=== PATIENT | male | born 1985 | race Caucasian/White ===

== ENCOUNTER 2021-07-17 18:39 | Inpatient (IN) | payer OTHER ==
[~2021-07-17] VITALS: Ht 172.7 cm; Wt 131.0 kg
[~2021-07-17 18:39] MED LIST: CYCLOBENZAPRINE10 MG PO; NORCO 5-325 TA1 EACH PO
[2021-07-17] MEDS ORDERED: ALEVE220 MG PO (19:18)
--- NOTE | 2021-07-17 23:29 | NUR ---
REPORT RECEIVED FROM SENIOR TECHNOLOGISTPENNY ROCHA.
--- NOTE | 2021-07-18 02:03 | NUR ---
pt ARRIVES FROM ER VIA STRETCHER, ABLE TO TRANSFER SELF TO HOSPITAL BED. SPO2 WNL ON 2L OXYGEN BY NC. TELE PLACED ON pt WITH CPOX. LUNG SOUNDS COARSE BILATERALLY IN BASES, DIMINISHED. pt COMPLAINS OF SOME SHORTNESS OF BREATH, PAIN IN STERNUM AFTER COUGHING. PRN SLEEP AND COUGH MEDICATION ADMINISTERED. pt DENIES NEED FOR PRN PAIN MEDICATION. IV REMDESIVIR INFUSING WNL, IV SITE WITH GOOD BLOOD RETURN. ORIENTATION TO ROOM PROVIDED. pt STATES HE IS ANXIOUS REGARDING COVID DIAGNOSIS. THERAPEUTIC COMMUNICATION PROVIDED. CALL LIGHT IN REACH.
--- NOTE | 2021-07-18 02:06 | NUR ---
IV PUMP ALARMING. IV REMDESIVIR COMPLETE. pt SNORING, SLEEPING. BREATHING UNLABORED. 2L OXYGEN BY NC IN PLACE.
--- NOTE | 2021-07-18 02:32 | NUR ---
SPO2 DROPS TO 80% WITH 2L OXYGEN BY NC IN PLACE. pt REPOSITIONED SELF FROM RIGHT SIDE TO LYING ON BACK. pt SLEEPING, EYES CLOSED, BREATHING UNLABORED. TITRATED TO 5L OXYGEN. RT HARDIK ALSO IN ROOM. LIGHTS OFF IN ROOM.
--- NOTE | 2021-07-18 04:58 | NUR ---
pt'S SPO2 74-75% ON TELE 6 CPOX. CALL LIGHT ANSWERED, pt C/O SOB WITH 5L OXYGEN BY NC IN PLACE. pt LYING ON BACK WITH HOB ELEVATED. pt INSTRUCTED TO LIE ON SIDE. SPO2 INCREASES TO 92% WITH SIDE LYING. RN ENTERS ROOM AFTER A FEW MINUTES. pt APPEARS TO BE SLEEPING, SNORING. EYES CLOSED, BREATHING UNLABORED. URINAL EMPTIED, CONCENTRATED, TEA COLOR.
--- NOTE | 2021-07-18 06:42 | NUR ---
pt DESAT TO MID 50'S, THIS RN TO ROOM. pt HAD NASAL CANNULA PLACED, 5L O2. TITRATED TO 15L, WITH 15L OXY MASK, MONITORED SATS, RECOVERED WITHIN MINUTES. TITRATED TO 5L O2 VIA NC. MONITORED, pt ABLE TO MAINTAIN SATS OF 90% ON THE 5L. INGRID RN AT DOOR.
--- NOTE | 2021-07-18 06:43 | NUR ---
PT BACK TO BED, O2 @ 5L NC. PRIOR TO THIS @ 0635 TEL CPOX WAS READING 61, BY TIME RN TO ROOM, IT HAD DROPPED INTO THE 50'S. PT LAYING SPRAWLED ON HIS BACK, INSTRUCTED PT TO TURN TO HIS SIDE, HE STATED HE HAD BEEN UP TO THE BATHROOM, TOOK O2 OFF CAUSE "IT DIDN'T REACH", GOT DISORIENTATED IN THE "CORDS" DIDN'T WANT TO PEE ON THEM, AND HIMSELF. HIS OXYGEN WAS LAYING ON HIS BED. TATO, RN INTO ROOM, TURNED O2 UP WITH OXY MASK, RECOVERY WAS SLOW. PT INSTRUCTED TO STAND AT BEDSIDE TO USE THE URINAL, CALL TO USE BSC, OR HAVE STAFF ASSISTED INTO THE BATHROOM. PT AWARE TO LAY ON HIS SIDE, AND UNDERSTANDS THE REASONING. UPON ADMISSION TO THE FLOOR HE HAD STATED TO THIS RN, "DON'T LET ME ", HE WAS JOKING, BUT IS ALSO FEARFUL. PLANS TO BECOME VACCINATED, IS AWARE THAT HE WILL HAVE TO WAIT FOR 90 DAYS. HIS IS POSITIVE WELL, HOWEVER, HIS CHILDREN ARE NOT SICK AT THIS TIME.
--- NOTE | 2021-07-18 07:06 | NUR ---
pt AWAKE RESTING ON LEFT SIDE, SPO2 92% WITH 5L OXYGEN BY NC IN PLACE. VSS. pt WITH OCCASIONAL COUGH, PRN MEDICATION ADMINISTERED. DISCUSSED PRONING IMPORTANCE WITH PATIENT, VERBALIZES UNDERSTANDING. CALL LIGHT IN REACH. ICE WATER PROVIDED.
--- NOTE | 2021-07-18 07:43 | NUR ---
PT IN BED PRONING. 5L NC IN PLACE. SPO2 93%. HR 87. VISULIZED THROUGH DOOR. CALL LIGHT IN REACH.
--- NOTE | 2021-07-18 09:00 | NUR ---
ASSESSMENT COMPLETED. ON 5L NC. SATURATIOSN 91%. ASSISTED PT TO PRONING POSITION WITH PILLOWS UDER HIP/CHEST AND SHINS. TOLERATING WELL. SPO2 AT 92%LUNGS COARSE IN BASES AND DIM. NO EDEMA. RR IS 20. DENIES SOB. PULSES WNL.HEART SOUNDS REGULAR. PT IS TACHY. COUGH MEDICATION ADMISNTERED AND TYLENOL FOR BODY ACHES. ELEATED TEMP NOTED WLL. REFUSING BREAKFAST. ENCOURAGED FLUID INTTAKE.
--- NOTE | 2021-07-18 10:31 | NUR ---
MED REC COMPLETE
--- NOTE | 2021-07-18 10:36 | NUR ---
PTS SATURATIONS AT 86%. THIS NURSE TO BEDSIDE. PT LYING ON SIDE. PT HAS 5L NC IN PLACE. CHAGED TO OXYMASK 10L. SATURAIOTNS INCREASED TO 94% WILL CONT TO MONITOR.
--- NOTE | 2021-07-18 11:43 | NUR ---
PT CALLS REPORTING OXYGEN WAS PULLED OUT OF THE WALL. PT IS WITH SATURATIONS OF 96% AND DECREASING. THIS NURSE TO BEDSIDE. SATURATIONS AT 90% BY THIS TIME. PT REPORTS HE IS BREATHING BETTER WITH BOTH NC AND OXYMASK IN PLACE. OXYMASK IS AT 10L AND NC IS AT 6L. THIS IS WHY SATURATIOSN WERE SO HIGH. RESPITORY THERAPY TO BESIDE WELL. RT WILL BRING HIGH FLOW CANNULA FOR PT.
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
--- NOTE | 2021-07-18 14:19 | NUR ---
PT DESATTED WHILE UP TO USE THE URINAL. HAD TO TURN UP THE O2 TO 7LNC. TOLERATED WELL AND DOES NOT FEEL SOB.
--- NOTE | 2021-07-18 14:30 | NUR ---
ROUNDED ON PT FOR SATURATIONS DECREASING. TITRATED TO 7L NC. SPO2 AT 91% NOW. PT PRONING. CALL LIGHT IN REACH. ATE 75% OF LUNCH.
--- NOTE | 2021-07-18 14:35 | NUR ---
PT WAS IN BED. THIS COLOR MIXER CAME IN TO TAKE PT'S VITALS AND I&OS. NO OTHER NEEDS AT THIS TIME. CALL LIGHT IS WITHIN REACH.
--- NOTE | 2021-07-18 15:41 | NUR ---
Chart faxed to Marcella at [facility] to obtain pcp to establish care.
--- NOTE | 2021-07-18 17:27 | NUR ---
ROUNDED ON PT. PT LYING ON LEFT SIDE. TITATED O2 BACK TO 6L NC. SATURATIONS 90%. PT NOT HUNGERY BUT AGREES TO EAT CHICKEN NOODLE SOUP. VITALS TAKEN AND STABLE. PT VOIDED 300ML. COUGH MEDICATION AND TYLENOL ADMISNTERED FOR COUGH AND ACHES. DENIES FURTHER NEEDS. ENCOURAGED FLUID INTAKE.
--- NOTE | 2021-07-18 18:20 | NUR ---
THIS [employer] FISHING VESSEL CHECKED ON PT AND MARKED OFF I&OS. PT HAD NO OTHER NEEDS AT THIS TIME. CALL LIGHT IS WITHIN REACH.
--- NOTE | 2021-07-18 19:36 | NUR ---
PT RESTING IN BED. NC @ 6L, CPOX 89%. CALL LIGHT IN REACH.
--- NOTE | 2021-07-18 20:30 | NUR ---
ASSESSMENT, VS AND I&O COMPLETED. GCS 15, A&O X4. LUNGS HAVE CRACKLES IN ALL L0BES. NC @ 6L, CPOX 89% SCHEDULED MEDS PROVIDED. HEART TONES REGULAR. ABD SOFT, OBESE, BOWEL TONES ACTIVE. CMS INTACT. IV WNL, CDI, FLUSHED WELL. ICE WATER, ICE CHIPS, BLANKETS AND SNACK PROVIDED. NO OTHER NEEDS. CALL LIGHT IN REACH.
--- NOTE | 2021-07-18 22:02 | NUR ---
PATIENT NEEDED URINAL DUMPED, FRESH ICE WATER PROVIDED, AND IS AND OS CHARTED.
--- NOTE | 2021-07-18 23:24 | NUR ---
PT RESITNG IN BED. SPO2 89% ON 6L NC. CALL LIGHT IN REACH.
--- NOTE | 2021-07-19 01:26 | NUR ---
spo2 80%. pt placed on 8l oxymask, no change. pt placed in the upright position, no change. i.s. used, pt coughed vigoriously. spo2 up to 90% but goes back to 84%. oxymask up to 12L, spo2 92%. o2 titrated to 10L oxymask, spo2 89%. pt denies sob the entire time. cough is unproductive. Will continue to monitor.
--- NOTE | 2021-07-19 02:05 | NUR ---
ASSESSMENT COMPLETD. SPO2 90% ON 10L OXYMASK. NASAL SPRAY PROVIDED. LUNGS HAVE CRACKLES IN THE UPPER LOBES AND COURSE AND DIMINISHED IN LOWER LOBES. PT DENIES SOB. RR 20 AND SHALLOW. EDUCATION PROVIDED ABOUT DEEP BREATHING, I.S. AND PRONE/SIDE POSITIONING. PT MOVES TO LEFT SIDE. NO OTHER NEEDS AT THIS TIME. CALL LIGHT IN REACH.
--- NOTE | 2021-07-19 03:25 | NUR ---
PT CALLS TO REPORT HE HAS REMOVED THE O2 FROM THE WALL, SPO2 DROPS TO 64% QUICKLY. O2 PLUGGED BACK IN, SPO2 RETURNS TO 89% WITHIN A COUPLE OF MINUTES. SUBSTANCE ABUSE COUNSELOR IN ROOM TO ASSIST PT WITH PERSONAL CARES.
--- NOTE | 2021-07-19 03:31 | NUR ---
PT CALLED NURSES STATION NEEDING ASSISTANCE WITH O2. THIS STAFF THERAPIST ASSISTED PT WITH O2, EMPTIED URINAL, CHARTED IS AND OS, AND PROVIDED FRESH ICE WATER. CALL LIGHT LEFT WITHIN REACH, NO OTHER IMMEDIATE NEEDS AT THIS TIME.
--- NOTE | 2021-07-19 06:20 | NUR ---
PATIENT VITALS, IS AND OS CHARTED. PATIENT ROOM TIDIED, TRASH CANS EMPTIED, FRESH ICE WATER PROVIDED. BREAKFAST ORDER TAKEN. CALL LIGHT LEFT WITHIN REACH. NO OTHER NEEDS AT THIS TIME.
--- NOTE | 2021-07-19 07:11 | NUR ---
REPORT RECEIVED FROM PENNY MENDEZ. PT SITTING UP IN BED WITH HEAD OF BED ELEVATED TO 45 DEGREES. OXGYEN SATURATIONS 80-85% ON 10L O2 BY OXY MASK. PT REPORTS INCREASED COUGH. DR. PEDERSON CALLED AND UPDATED ON PT CONDITION. ORDERS GIVEN FOR VAPOTHER AND CPAP TO MAINTAIN OXYGEN SATURATIONS ABOVE 88%. RT CALLED AND UPDATED, EN ROUTE WITH NEW EQUIPMENT.
--- NOTE | 2021-07-19 07:26 | NUR ---
THIS RN TO ROOM. PT PLACED ON NON REBREATHER AT 16L, OXYGEN SATURATIONS CLIMB TO 95%. EDUCATION DONE WITH PT REGARDING VAPOTHERM AND CPAP USE. RT ASIF TO BEDSIDE. PT TRIED ON HIGH FLOW NASAL CANULA AT 16L AND DROPS TO 86-88%. PT PLACED BACK ON NON REBREATHER AT 14L O2 WITH OXGYEN SATURATIONS MAINTAINING ABOVE 90%. CPAP FITTED TO PT BY RT JEANIE. PT PLACED ON 15 CPAP SETTINGS WITH 50% FIO2, OXYGEN STATURATIONS 90-95%. FULL ASSESSMENT DONE: PT DENIES PAIN AND NAUSEA. LUNG SOUNDS CLEAR THROUGHOUT BUT VERY DEMINISHED IN BASES. BREATHING SHALLOW, PT REPORTS HE IS UNABLE TO TAKE DEEP BREATHS BECAUSE IT "STARTS A COUGHING FIT AND THEN I CAN'T BREATH." DRY COUGH NOTED. PRN COUGH MEDICATION GIVEN (SEE MAR). PT DENIES DIARRHEA, NAUSEA OR EMESIS WITH COVID. PT DOES REPORT LOSS OF TASTE AND MINIMAL APPITITE. MEDICATIONS GIVEN. PT POSITIONED TO RIGHT SIDE TO REST. CPAP REMAINS IN PLACE. PT REPORTS "THIS ACTUALLY FEELS REALLY GOOD, LIKE I CAN BREATH." PT DENIES ADDITIONAL REQUESTS OR COMPLAINTS. CALL LIGHT WITHIN REACH. BED RAILS UP.
--- NOTE | 2021-07-19 07:40 | NUR ---
PT SPO2 DROPPED TO 80%, PT WAS PLACED ON NON-REBREATHER BY RN AND SPO2 CAME UP TO 91 %. PATIENT WAS STARTED ON CPAP 15 AND FIO2 OF 50% . PT IS TOLERATING THIS WELL AND WAS GOING TO REST. PT PLACED ON LEFT SIDE . PT IS UNABLE TO TO TOLERATE THE HEAT. PT IS ALSO NOT ABLE TO TOLERATE THE HIGH FLOW TO WALL SPO2 DROPS INTO THE 80,S. DISCUSSED WITH RN TO PLACE PATIENT ON NONREBREATHER WHEN TAKING OFF THE CPAP.
--- NOTE | 2021-07-19 08:01 | NUR ---
PT REPORTS BODY ACHES AND HEADACHE AT 12/13 AND REQUESTS TYLENOL. SEE MAR FOR MEDICATION GIVEN. PT DENIES ADDITIONAL REQUESTS OR COMPLAINTS. CPAP REMAINS IN PLACE AT 15 CPAP SETTINGS AND 50% FIO2 WITH OXGYEN SATURATION OF 94%. CALL LIGHT WITHIN REACH. BED RAILS UP. PILLOWS USED FOR SUPPORT WITH PT LYING ON LEFT SIDE.
--- NOTE | 2021-07-19 09:50 | NUR ---
THIS RN TO ROOM TO CHECK ON PT. PT DENEIS PAIN OR NAUSEA. PT REPORTS HE FEELS READY TO EAT. CPAP MASK REMOVED AND PT PLACED ON 16L O2 BY NC TO EAT APPLESAUCE. OXGYEN SATURATIONS MAINTAIN ABOVE 88%. AFTER 3-4 BITES OF APPLE SAUCE PT REPORTS HE BREATHING "JUST DOESN'T FEEL GOOD WITHOUT THAT MASK." PT REPORTS MINIMAL APPITITE. ENSURE ENCOARUGED, PT AGREES, ORDERED FOR LUNCH. CPAP REPLACED AT 15 CPAP SETTINGS AND 50% FIO2. PT REPOSIIONED TO RIGHT SIDE. NO ADDITIONAL REQUESTS OR COMPLAINTS. CALL LIGHT WITHIN REACH. BED RAILSUP.
--- NOTE | 2021-07-19 10:15 | NUR ---
Pt sleeping. No change in plan for dc.
--- NOTE | 2021-07-19 10:28 | NUR ---
PTS , PRATIK, CALLED WITH UPDATE ON PT STATUS. PRATIK VERBALIZES UNDERSTANDING OF PLAN OF CARE AND STATES HER QUESTIONS HAVE BEEN ANSWERED.
--- NOTE | 2021-07-19 12:14 | NUR ---
THIS RN TO ROOM TO CHECK ON PT. PT RESTING ON RIGHT SIDE. PT REPORTS HE IS READY FOR ENSURE MILKSHAKE FOR LUNCH. PT PLACED ON OXYMASK AT 15L SO HE CAN DRINK MILKSHAKE. HEAD OF BED ELEVATED TO 36 DEGREES. OXYGEN SATURATION DROPS TO 86% WITH OXYMASK IN PLACE. PT REPORTS "I FEEL LIKE I'M WORKING" ON THE OXYMASK, REPORTS EASIER BREATHING WITH CPAP IN PLACE. JEANIE, RT, TO BEDSIDE TO CHECK ON PT. PT PLACED ON NON REBERATHER AT 15L FOR AMBULATION AND TIME UP TO RESTROOM. OXGYEN SATURATION 86-98% WITH AMBULATION TO RESTROOM. PT VOIDS 500ML CLEAR YELLOW URINE. STAND BY ASSIST UP TO CHAIR. CPAP REPLACED TO PTS FACE WITH 15 CPAP SETTING AND 50% FIO2. OXGYEN SATURATIONS RECOVER TO 90-94% WITH CPAP IN PLACE. PT REPORTS "I JUST DON'T FEEL LIKE I GET ENOUGH AIR" WITHOUT THE CPAP. PT DENIES ADDITIONAL REQUSTS OR COMPLAINTS. CALL LIGHT WITHIN REACH.
--- NOTE | 2021-07-19 12:15 | NUR ---
PT UP TO BATHROOM , PT UP TO CHAIR ON NON REBREATHER, SPO2 DROPPED TO 87%, PT RECOVERED IN THE CHAIR TO 92%, PT PLACED ON CPAP OF 15 , 50% , WILL CONTINUE TO MONITOR.
--- NOTE | 2021-07-19 13:49 | NUR ---
AFTERNOON ASSESSMENT DUE. PT REMAINS UP TO CHAIR. REPORTS HE IS "FEELING PRETTY GOOD BUT GETTING A LITTLE TIRED." PT DENIES PAIN AND NAUSEA AND REPORTS NO EPISODES OF DIARRHEA. PT REPORTS ENSURE MILKSHAKE SETTLED WELL, DRANK ~20% SO FAR. LUNG SOUNDS REMAIN CLEAR, DEMINISHED IN BASES. DRY COUGH AT TIMES, PT REPORTS IMPROVING WITH CPAP IN PLACE. OXGYEN SATRAUTION 92-95% WITH 15 CPAP SETTINGS AND 50% FIO2. PT REQUESTS TO GET BACK TO BED. ATTEMPTS TO PRONE BUT IS UNABLE TO KEEP CPAP IN PLACE COMFORTABLY WITH PRONING. PT NOW ON RIGHT SIDE, OXGYEN SATURATIONS OF 94%. PT DENIES ADDITIONAL REQUESTS OR COMPLAINTS. CALL LIGHT WITHIN REACH. BED RAILS UP.
--- NOTE | 2021-07-19 14:34 | NUR ---
RETURN CALL PLACED TO PTS PRATIK. NO ANSWER AT THIS TIME.
--- NOTE | 2021-07-19 14:39 | NUR ---
PRATIK, RETURNED CALL. PRATIK UPDATED ON PTS STATUS AND PLAN OF CARE. PRATIK VERBALIZES UNDESTANDING AND STATES HER QUESTIONS HAVE BEEN ANSWERED. PRATIK STATES SHE IS IN ER HERSELF FOR CHECK UP REGARDING A FALL THAT SHE CANNOT REMEMBER. PRATIK STATES NOT TO UPDATE PT AT THIS TIME.
--- NOTE | 2021-07-19 15:20 | NUR ---
THIS RN TO ROOM TO CHECK ON PT. PT RESTING IN BED ON RIGHT SIDE WITH EYES CLOSED, RESPIRATIONS EVEN AND UNLABORED. OXYGEN SATURATIONS 94% ON CPAP WITH 15 CPAP SETTINGS AND 50% FIO2. PT ALLOWED TO REST. CALL LIGHT WITHIN REACH. BED RAILS UP.
--- NOTE | 2021-07-19 16:31 | NUR ---
PT HERE FOR COVID RELATED PENUMONIA. PT UP TO CHAIR THIS SHIFT WITH STAND BY ASSIST. OXYGEN SATURATIONS NOTED TO BE 80-85% THIS MORNING AT SHIFT CHANGE WIHT PT ON 10L O2 BY NC. NON REBREATHER, HIGH FLOW NC, AND OXYMASK TRIED WITH PT UNABLE TO MAINTAIN SATURATIONS ABOVE 90%. PT PLACED ON CPAP WITH 15 PRESSURE SETTINGS AND 50% FIO2 AND MAINTAINED OXGYEN SATURATIONS ABOVE 90%. CONTINIOUS PULSE OX IN PLACE TO MONITOR OXGYEN SATURATIONS. PT HAS VERY MINIMAL APPITITE FOR REGULAR DIET, ENSURE PROVIDED. PT PARTICIPATING IN PRONING PROTOCOLS. PT VOIDING QUANTITY SUFFICIENT. PRN COUGH MEDICATION GIVEN FOR DRY COUGH. PT USES CALL LIGHT AND MAKES NEEDS KNOWN.
--- NOTE | 2021-07-19 17:16 | NUR ---
THIS RN TO ROOM TO CHECK ON PT. PT AWAKENS TO MOVEMENT IN ROOM. PT REMAINS AT 90-94% ON 15 CPAP WITH 50% FIO2. STAND BY ASSIST UP TO CHAIR. PT PLACED ON OXYMASK AT 16L TO DRINK ENSURE MILKSHAKE, PT DESATURATES TO 80% ON OXYMASK. PT PLACED ON NON REBREATHER AT 16L, OXYGEN SATURATION CLIMBS TO 92%. PT ASSISTED WITH CALLING HIS , PRATIK, TO TALK ON PHONE. WHILE TALKING ON PHONE, PT REPORTS "I'VE HAD A REALLY GOOD DAY, THIS MACHINE HELPS ME BREATH A LOT BETTER." PT TALKING ON PHONE AND DRINKING ENSURE MILKSHAKE IN SIPS. VITAL SIGNS STABLE. NO ADDITIONAL REQUESTS OR COMPLAINTS CALL LIGHT WITHIN REACH.
--- NOTE | 2021-07-19 17:52 | NUR ---
PT CALL LIGHT ON, PT STATES HE IS GETTING UP TO THE RESTROOM. THIS RN TO ROOM. PT UP TO RESTROOM. PT HAS VOIDED INTO TOILET, UNMEASURED AMOUNT. OXGYEN SATURATIONS DROP TO 80% WITH PT ON NONREBREATHER AT 16L. STAND BY ASSIST BACK TO BED. PT RECOVERS TO 84% ON NON REBREATHER AND STATES "IT'S TIME TO HAVE THE CPAP BACK." CPAP PLACED AT 15 PRESSURE, 50% FIO2 SETTINGS. PT RESTING ON RIGHT SIDE. PT DENIES PAIN AND NAUSEA. OXGYEN SATURATIONS RECOVER TO 92%, MAINTAINING ABOVE 90%. PT DENIES ADDITIONAL REQUESTS OR COMPLAINTS. EDUCATION DONE WITH PT REGARDING CALLING NURSING STAFF WHEN READY TO AMBULATE AND USING URINAL. PT VERBALIZES UNDERSTANDING. BED RAILS UP. PT SUPPORTED WITH PILLOWS. CALL LIGHT WITHIN REACH.
--- NOTE | 2021-07-19 19:41 | NUR ---
SHIFT REPORT RECEIVED FROM CHRISTIE FRANCIS. PT LAYING ON RIGHT SIDE. CPOX 93% ON CPAP 15/50% FIO2. NO NEEDS AT THIS TIME. CALL LIGHT IN REACH.
--- NOTE | 2021-07-19 20:30 | NUR ---
ASSESSMENT, VS AND I&O COMPLETED. PT HAS BIPAP ON, CHANGED TO OXYMASK @ 15L FOR MEDICATION ADMINISTRATION AND PT DROPS TO 80% QUICKLY, RECOVERS QUCICKLY WHEN PLACED BACK ON BIPAP.SCHEDULED MEDS PROVIDED. TYLENOL PROVIDED FOR 4/10 GENERALIZED PAIN. PRN COUGH MED PROVIDED. LUNGS CLEAR IN ALL LOBES BUT DIMINISHED IN LOWERS. HEART TONES REGULAR. ABD OBESE, NONTENDER, BOWEL TONES ACTIVE. IV WNL, CDI, FLUSHED WELL. CMS INTACT. ICE WATER PROVIDED. SNACKS OFFERED AND DECLINED. NO OTHER NEEDS. CALL LIGHT IN REACH.
--- NOTE | 2021-07-20 | NUR ---
PT RESTING IN BED ON RIGHT SIDE. SPO2 95% ON BIPAP 15/50%. CALL LIGHT IN REACH.
--- NOTE | 2021-07-20 02:00 | NUR ---
PT RESTING IN BED. SPO2 90% ON CPAP 15/50%. CALL LIGHT IN REACH.
--- NOTE | 2021-07-20 04:00 | NUR ---
PT RESTING IN BED. SPO2 96% ON 15/50% CPAP. CALL LIGHT IN REACH.
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
--- NOTE | 2021-07-20 06:29 | NUR ---
ASSESSMENT, VS AND I&O COMPLETED. SPO2 95% ON CPAP 15/50%. LUNGS CLEAR IN ALL LOBES. IV WNL. CMS INTACT. NO OTHER NEEDS AT THIS TIME. CALL LIGHT IN REACH.
--- NOTE | 2021-07-20 07:29 | NUR ---
REPORT RECEIVED FROM PENNY MENDEZ. PT SITTING UP IN BED. CPAP IN PLACE. OXGYEN SATURATIONS OF 93% ON 50% FIO2 AND 15 PRESSURE SETTINGS. PT REQUESTS FRESH ICE WATER AND TO SPEND SOMETIME ON THE NON REBREATHER. WILL ASSIST PT SHORTLY. NO ADDITIONAL REQUESTS OR COMPLAINTS. CALL LIGHT WITHIN REACH. BED RAILS UP.
--- NOTE | 2021-07-20 07:35 | NUR ---
MORNING ASSESSMENT AND MEDICATION DUE. PT REQEUSTS TIME ON THE NON REBREATHER MASK. THIS RN TO ROOM. PT SWITCHED TO NON REBREATHER MASK SET TO 16L O2. OXYGEN SATRUATIONS MAINTAINING ABOVE 90%. PT REPORTS HIS BREATHING FEELS "MUCH BETTER TODAY." PT STATES HE IS ABLE TO TAKE DEEPER BREATHS AND DEMONSTRATES SO BY USING I.S. AND REACHING 1000ML X3. DRY COUGH NOTED WITH I.S. USE. PRN COUGH MEDICATION GIVEN. LUNG SOUNDS CLEAR, DEMINISHED IN LOWER LOBES ALTHOUGH MORE AIR MOVEMENT IS HEARD TODAY COMPARED TO YESTERDAY. PT DENIES PAIN AND NAUSEA, REPORTS NO BODY ACHES OR HEADACHES TODAY. PT DENIES DIARRHEA. STATES HIS TASTE SEEMS TO BE RETURNING. PT REQUESTS BREAKFAST TODAY, ENSURE MILKSHAKE AND FRUIT ORDERED FOR PT PER HIS REQUEST. STAND BY ASSIST UP TO CHAIR. MEDICAITONS GIVEN. PT CONTINUES TO MAINTAIN OXGYEN SAUTRATIONS ABOVE 90% ON 16L NON REBREATHER. PT ENCROUAGED TO DO LEG EXERCISES WHILE RESTING TODAY, DEMONSTRATES UNDERSTANDING. PO FLUIDS ENCORAUGED. WATER REFILLED. PT DENIES ADDITIONAL REQEUSTS OR COMPLAINTS. PT TEXTING ON PHONE. CALL LIGHT WITHIN REACH. BED RAILS UP.
--- NOTE | 2021-07-20 09:15 | NUR ---
CT SCAN ORDERED. THIS RN ACCOMPANIES PT TO CT. PT REMAINS ON NON REBREATHER AT 16L O2 DURING TRANSPORT AND CT SCAN. OXGYEN SATURATIONS DROP LOW AT 82% BUT PT RECOVERS QUICKLY TO 90%'S WITH REST. PT TRANSFERED FROM CT TO CCU PER MD ORDER. PT UPDATED ON PLAN OF CARE AND VERBALIZES UNDERSTANDING. REPORT GIVEN TO PENNY VALENCIA. PT REMAINS UP TO CHAIR ON NON REBREATHER, OXGYEN SATURATION 94%. PT TALKING WITH ANNIE. NO ADDITIONAL REQUESTS, COMPLAINTS, OR NEEDS AT THIS TIME.
--- NOTE | 2021-07-20 10:00 | NUR ---
PT ARRIVED VIA WHEELCHAIR FROM CT AWAKE AND ALERT ON 15L O2 NONREBREATHER MASK. PENNY SORIANO WITH PT AT THIS TIME. PT ABLE TO GET OUT OF WHEELCHAIR AND TRANSFER TO THE BEDSIDE RECLINER WITH MINIMAL ASSISTANCE. PT ALERT AND ORIENTED X3, SPO2 94%. BEDSIDE REPORT RECEIVED FROM PENNY SORIANO. VITALS TAKEN, ASSESSMENT COMPLETED, LUNGS CLEAR IN UPPER LOBES BILAT, DIMINISHED/CLEAR IN LOWER BASES, BOWEL TONES HYPOACTIVE. PT REPORTS NO SHORTNESS OF BREATH AT THIS TIME. PT PLACED ON HIGHFLOW NASAL CANNULA AT THIS TIME AT 15L BUT DESATURATED TO 80-85% SPO2 AND REPORTED FEELING SHORT OF BREATH. PT PLACED BACK ON THE NONREBREATHER AT 15L. PT DENIES HAVING ANY PAIN AT THIS TIME AND NOW DENIES SHORTNESS OF BREATH, PT DENIES THE NEED FOR COUGH MEDICATION AT THIS TIME. PT NOW RESTING IN THE RECLINER, SPO2 AT 91% ON THE NRB MASK. RT NOTIFIED OF PT ARRIVAL TO ROOM IN ORDER TO SET UP THE CPAP. PT REPORTS NO FURTHER NEEDS, CALL LIGHT IN REACH, WILL CONTINUE PLAN OF CARE.
--- NOTE | 2021-07-20 10:40 | NUR ---
RT IN ROOM TO ASSESS PT AND SET UP PT'S CPAP AT THIS TIME.
--- NOTE | 2021-07-20 10:47 | NUR ---
PATIENTS PERSONAL BELONGINGS DELIVERED TO ROOM.
--- NOTE | 2021-07-20 10:52 | NUR ---
PT MOVED OVER TO FROM THE RECLINER TO THE BED AT THIS TIME. THIS RN STANDBYE ASSIST, PT REQUIRED NO ASSISTANCE AT THIS TIME AND IS NOW RESTING IN BED ON HIS RIGHT SIDE ON THE NONREBREATHER MASK. PT REPORTS NO NEEDS AT THIS TIME WHEN ASKED, WILL CONTINUE PLAN OF CARE. CALL LIGHT IN REACH, BED IN LOWEST POSITION.
--- NOTE | 2021-07-20 11:00 | NUR ---
PTS PRATIK, CALLED WITH UPDATE ON PT STATUS AND TRANSFER TO CCU. PRATIK VERBALIZES UNDERSTANDING OF PLAN OF CAR AND STATES HER QUESTIONS HAVE BEEN ANSWERED.
--- NOTE | 2021-07-20 12:05 | NUR ---
THIS RN IN TO ASSESS PT. PT LAYING IN BED AWAKE AND ALERT ON THE NONREBREATHER MASK AT 15L. PT DENIES ANY PAIN OR SHORTNESS OF BREATH AT THIS TIME, SPO2 AT 90%. VITALS TAKEN, PT ASSESSED, AND LUNCH BROUGHT TO PT. AFTER TURNING TO HIS SIDE TO REST PT BEGAN TO DESATURATE AND HAD AN SPO2 OF 85% WHICH MAINTAINED, PT WAS THEN PLACED ON THE CPAP 50% FIO2. PT NOW RESTING IN BED ON HIS LEFT SIDE, CPAP ON, SPO2 AT 90%. PT REPORTS NO SOB, DENIES THE NEED FOR COUGH MEDICATION, AND DENIES HAVING ANY PAIN. CALL LIGHT IN REACH, BED IN LOWEST POSITION, WILL CONTINUE PLAN OF CARE.
--- NOTE | 2021-07-20 14:30 | NUR ---
THIS RN IN TO CHECK ON PT. VITALS TAKEN AT THIS TIME. PT AWAKE AND ALERT AT THIS TIME ON THE NONREBREATHER 15L O2. PT REPORTS NO FURTHER NEEDS AT THIS TIME AND DENIES THE NEED FOR HIS PRN COUGH MEDICATION. ICE WATER PROVIDED AT THIS TIME. WILL CONTINUE PLAN OF CARE. CALL LIGHT IN REACH, BED IN LOWEST POSITION.
--- NOTE | 2021-07-20 17:00 | NUR ---
THIS RN IN TO ASSESS PT. PT LAYING IN BED ON THE CPAP AT THIS TIME AWAKE AND ALERT. PT DINNER ORDER TAKEN AT THIS TIME. PT DENIES SHORTNESS OF BREATH, PAIN, AND DENIES THE NEED FOR PRN COUGH MEDICATION AT THIS TIME. PT ASSESSED AT THIS TIME, LUNGS ARE CLEAR IN THE UPPER LOBES BILATERALLY AND CLEAR/DIMINISHED IN THE LOWER LOBES BILATERALLY. CPAP AT 50% FIO2 AT THIS TIME. PT REPORTS NO FURTHER NEEDS AT THIS TIME WHEN ASKED, PT NOW UP THE SIDE OF THE BED USING THE URINAL. CALL LIGHT IN REACH, BED IN LOWEST POSITION, WILL CONTINUE PLAN OF CARE.
--- NOTE | 2021-07-20 17:44 | NUR ---
THIS RN IN TO BRING PT HIS DINNER AND ADMINISTER PRN COUGH MEDICATION. PT LAYING IN BED AT THIS TIME ON THE NONREBEREATHER MASK 15L, SPO2 AT 92%. PT WANTED TO EAT DINNER ON THE RECLINER AND WAS ABLE TO GET UP AND WALK OVER TO IT WITHOUT DIFFICULTY. PRN COUGH MEDICATION ADMINISTERED AT THIS TIME. PT NOW IN THE RECLINER WATCHING TV AND STATES HE WILL START ON HIS DINNER SHORTLY. CALL LIGHT IN REACH, SPO2 90%, PT DENIES SOB OR PAIN AT THIS TIME, WILL CONTINUE PLAN OF CARE.
--- NOTE | 2021-07-20 19:39 | NUR ---
RECEIVED REPORT FROM [facility] R[facility]. pt SITTING IN CHAIR ON 15L NON REBREATHER. SAT 93%, RESPIRATIONS 24. NO REQUESTS AT THIS TIME. CALL LIGHT WITHIN REACH.
--- NOTE | 2021-07-20 21:31 | NUR ---
IN FOR ASSESSMENT AND EVENING MED. PT IS LAYING PRONE ON LT SIDE. PT REPORTS NO PAIN, FEELS "PRETTY GOOD". AXILLARY TEMP 99.4f, LUNG SOUNDS MOSTLY CLEAR WITH EXCEPTION OF LLL HAS FINE CRACKLES. CMS INTACT, BOWEL TONES ACTIVE. PT IS WEARING BIPAP; SPO2 94%. PT DENIES FURTHER NEEDS AT THIS TIME. CALL LIGHT WITHIN REACH
--- NOTE | 2021-07-21 00:11 | NUR ---
ROUNDS: PT LAYING SUPINE, STILL ON CPAP, SPO2 94%. NO APPARENT SIGNS OF DISTRESS.
--- NOTE | 2021-07-21 01:45 | NUR ---
CPAP ALARMING, pt NOW ON 15L NON REBREATHER, CPAP IN STANDBY. NO NEEDS AT THIS TIME. CALL LIGHT WITHIN REACH.
--- NOTE | 2021-07-21 02:57 | NUR ---
pt COUGHING, ACCEPTED COUGH MEDICATION. REQUESTED PRN FOR PAIN FROM COUGHING. GIVEN (SEE MAR). NO FURTHER REQUESTS. CALL LIGHT WITHIN REACH.
--- NOTE | 2021-07-21 06:02 | NUR ---
IN TO DO ASSESSMENT. pt RESTING IN BED. NO REQUESTS AT THIS TIME. LUNGS CLEAR. ON 15L NON REBREATHER. LABS DRAWN. CALL LIGHT WITHIN REACH CALLED, UPDATE GIVEN.
--- NOTE | 2021-07-21 07:30 | NUR ---
REPORT RECIEVED. PATIENT IS RESTFULL IN BED. REMAINS ON NRBM AT 15 L.
--- NOTE | 2021-07-21 09:30 | NUR ---
ASSESSMENT DONE. TALKED WITH PATIENT ABOUT POC FOR DAY, INDICATES UNDERSTANDING. NRBM IN PLACE AT 15 L, PATIENT WISHES TO KEEP NRBM ON AT THIS TIME. TOLD PATIENT WHEN HE WANTS CPAP REAPPLIED TO LET ME KNOW. ENCOUREGED TO INCREASE PO FLUIDS AND FOOD. DENIES PAIN/NAUSEA, STATES HE HAS HAD NO APPETITE.
--- NOTE | 2021-07-21 10:35 | NUR ---
AMM CARE GIVEN. PATIENT TOLERATED WELL. SITTING IN CHAIR AFTER CARE DONE. O2 SAT ON NRBM 90.
--- NOTE | 2021-07-21 10:50 | NUR ---
TESSALON MYRON 100 MG PO GIVEN FOR COUGH. AM CARE GIVEN THEN TO CHAIR WITH ASSIST. REMAINS ON NRBM.
--- NOTE | 2021-07-21 12:00 | NUR ---
USED URINAL TO VOID 300 ML OF DARK URINE. UPON URINATION, O2 SAT DOWN TO 77. CPAP AT 80% FIO2 APPLIED. ASSESSMENT DONE.
--- NOTE | 2021-07-21 13:30 | NUR ---
WOKE PATIENT HIS FAMILY IS OUTSIDE WAVING WITH POSTERS FOR THE PATIENT TO SEE. CPAP TO NRBM PATIENT STANDING TO SEE OUT THE WINDOW. PATIENT STOOD FOR APPROX 3 MIN THEN RETURNED TO CHAIR ON CPAP. GOT VERY SHORT OF BREATH WITH EXERTION.
--- NOTE | 2021-07-21 15:17 | NUR ---
CONTINUES TO SIT IN CHAIR ON CPAP WITH PRESSURES OF 14, FIO2 80.
--- NOTE | 2021-07-21 16:20 | NUR ---
BACK TO BED AFTER SITTING IN CHAIR ALL AFTERNOON. CPAP ON.
--- NOTE | 2021-07-21 17:00 | NUR ---
OXYMASK ON AT 15 LITERS WHILE EATING DINNER.
--- NOTE | 2021-07-21 18:00 | NUR ---
TOOK ONLY FEW BITES OF POTATOES AND SIP OF POP FOR DINNER. OXYMASK OFF NOW ON CPAP AT 14 PRESSURE AND 80% FIO2. IS LAYING ON RIGHT SIDE.
--- NOTE | 2021-07-21 19:30 | NUR ---
REPORT RECEIVED FORM RHONDA FRANCIS. PT RESTING IN BED WEARING CPAP, DENIES NEEDS.
--- NOTE | 2021-07-21 20:13 | NUR ---
IN TO CHECK ON PT, DO ASSESSMENT AND GIVE LOVENOX INJECTION. PT DENIES NEEDS, LYING ON HIS RIGHT SIDE WEARING CPAP 14 50%. SPO2 88-89%.
--- NOTE | 2021-07-21 22:12 | NUR ---
PT CALLS, STATES HE NEEDS A BREAK FROM THE CPAP. RT CALLED TO SEE TRY HIGH FLOW DEVICE.
--- NOTE | 2021-07-22 00:28 | NUR ---
PT REMOVED HIGH FLOW DEVICE AND PLACED HIMSELF ON NRB 15L, SPO2 DOWN TO 81-85%, STATES HE WAS FEELING SOB WITH THAT. PLACED BACK ON CPAP AND SPO2 UP TO 94%. GAVE TESSALON PERELS AND MELATONIN FOR COUGH AND INSOMNIA. ASSESSMENT DONE.
--- NOTE | 2021-07-22 02:30 | NUR ---
PT HAS BEEN WEARING CPAP FOR THE LAST TWO HOURS, SPO2 90-94% WITH FIO2 70%.
--- NOTE | 2021-07-22 06:05 | NUR ---
RT IN TO PLACE PT ON CPAP
--- NOTE | 2021-07-22 07:30 | NUR ---
REPORT RECEIVED FROM NIGHTSHIFT RN, WILL CONTINUE PLAN OF CARE.
--- NOTE | 2021-07-22 08:45 | NUR ---
THIS RN IN TO ASSESS PT AND ADMINISTER SCHEDULED MEDICATIONS. PT LAYING IN BED AWAKE AND ALERT AT THIS TIME ON THE HIGH FLOW CANNULA AT 45L AND THE OXYMASK AT 15L. PT REPORTS NO SHORTNESS OF BREATH AT THIS TIME WHEN ASKED AND DENIES HAVING ANY PAIN. PT DENIES THE NEED FOR PRN COUGH MEDICATION AT THIS TIME. VITALS TAKEN, PT ASSESSED. PT ENCOURAGED TO EAT FOOD AT THIS TIME, WHOLE MILK ORDERED FOR PT, PT PROVIDED WITH ICE WATER WELL WHOLE MILK ONCE IT ARRIVED. SCHEDULED MEDICATIONS ADMINISTERED AT THIS TIME (SEE MAR). PT REPORTS NO FURTHER NEEDS WHEN ASKED AND IS SITTING UP IN BED DRINKING MILK. WILL CONTINUE PLAN OF CARE. CALL LIGHT IN REACH, BED IN LOWEST POSITION.
--- NOTE | 2021-07-22 10:15 | NUR ---
THIS RN IN TO CHECK ON PT. PT LAYING ON HIS BACK AWAKE AND ALERT AT THIS TIME ON THE HIGH FLOW MACHINE AND OXYMASK, SPO2 86-88%. PT ASKED TO LAY ONTO HIS SIDE. PT ABLE TO LAY ON HIS SIDE WITHOUT ASSISTANCE, SPO2 SLOWLY INCREASING, PT REPORTS NO FURTHER NEEDS AT THIS TIME WHEN ASKED, WILL CONTINUE PLAN OF CARE. CALL LIGHT IN REACH, BED IN LOWEST POSITION, SPO2 95%.
--- NOTE | 2021-07-22 11:36 | NUR ---
PRATIK, PTS , UP DATED ON PT STATUS, PLAN OF CARE, AND PLAN FOR TRANSFER. PRATIK VERBALIZES UNDERSTANDING AND STATES HER QUESTIONS HAVE BEEN ANSWERED. PRATIK ASKS TO SPEAK WITH PT IF HE IS AWAKE, BUT NOT TO WAKE HIM UP. PT RESTIN ON RIGHT SIDE WITH EYES CLOSED. OXGYEN SATURATION 89% ON AIRVO AND OXYMASK AT 15 LITERS. BED RAILS UP. CALL LIGHT WITHIN REACH. PTS PRIMARY RN, ANNIE, UPDATED.
--- NOTE | 2021-07-22 12:10 | NUR ---
PT CHECKED ON AT THIS TIME, PT LAYING IN BED RESTING ON THE OXYMASK AND HIGH FLOW MACHINE. PT REPORTS NO NEEDS AT THIS TIME WHEN ASKED. PT ALERT AND ORIENTED AND REPORTS NO PAIN, COUGH, OR SOB. LUNCH ORDER TAKEN AT THIS TIME. PT REPORTS NO FURTHER NEEDS AT THIS TIME, WILL CONTINUE PLAN OF CARE. CALL LIGHT IN REACH, BED IN LOWEST POSITION, SPO2 90%.
--- NOTE | 2021-07-22 13:07 | NUR ---
THIS RN IN TO ASSESS PT. PT LAYING IN BED ON THE AIRVO2 AT 60LPM 95% FIO2 AND 15L OXYMASK, SETTINGS UNCHANGED, SPO2 90%. PT AWAKE AND ALERT AND DENIES SHORTNESS OF BREATH AND DENIES HAVING ANY PAIN. PT DENIES THE NEED FOR PRN COUGH MEDICATION AT THIS TIME. RT IN AT THIS TIME TO ASSESS PT. PT THEN ASSISTED OVER TO THE BEDSIDE RECLINER, PT ABLE TO STAND ON OWN AND TRANSFER AND ONLY REQUIRED ASSISTANCE WITH MANAGING WIRES. SPO2 MAINTAINED AT 88%. PT NOW ON THE RECLINER RESTING AND EATING HIS LUNCH. PT REPORTS NO FURTHER NEEDS AT THIS TIME WHEN ASKED, WILL CONTINUE PLAN OF CARE. CALL LIGHT IN REACH, BED IN LOWEST POSITION, PT INFORMED ON TRANSFER TO THE MEDICAL SURGICAL UNIT.
--- NOTE | 2021-07-22 14:20 | NUR ---
PT ARRIVED TO [facility] VIA CHAIR. PT IN [facility] [employer] AND STATES THAT HE IS FEELING WELL. PT ON NONREBREATHER WHEN TRANSFERRED OVER. PT HOLDING SATS OKAY. PT STATES THAT HE HAS NO NEEDS AT THIS TIME. THIS RN PLACED PT ON THE CPOX MACHINE IN ROOM DUE TO OUT OF STOCK ON OF CPOX CABLES FOR TELE BOX AT THIS TIME. THIS RN EDUCATED PT ABOUT CALLING THIS RN IF THE MACHINE STARTS TO ALARM, PT STATED UNDERSTADNING.
--- NOTE | 2021-07-22 14:20 | NUR ---
REPORT GIVEN TO PENNY BENZ. THIS RN THEN IN TO ROOM WITH RESPIRATORY THERAPIST TO TRANSFER PT TO 118. PT AWAKE AND ALERT AND PLACED ON THE NONREBREATHER 15L/FLOODED. RT TRANSPORTING PT OXYGEN EQUIPMENT TO NEW ROOM. PT ABLE TO MAINTAIN SPO2 AT 91% AND WAS TRANSFERRED VIA THE BEDSIDE RECLINER ALONG WITH HIS BELONGINGS TO ROOM 118. PENNY BENZ IN ROOM TO ASSUME CARE OF PT. PT NOW RESTING IN THE RECLINER IN 118, PENNY BENZ WITH PT.
--- NOTE | 2021-07-22 17:45 | NUR ---
THIS RN IN PTS ROOM TO CHECK ON PT. PT STATES THAT HE IS DOING WELL BUT IS THINKIN FRANK WOULD LIKE A SHOWER, THIS RN DISCUSSED WITH PT THAT THIS ISN'T A GREAT IDEA DUE TO NOT HAVING A TELE ON. PT STATED UNDERSTANDING. PT STATES NEEDING NOTHING ELSE, DENIES NEED FOR PRN MEDS
--- NOTE | 2021-07-22 20:28 | NUR ---
PATIENT RESTING ON HIS LEFT SIDE ON AIRVO2 60L/FIO2=95% AND OXYMASK AT 15L. O2 SAT IS 92% AND RESPIRATIONS ARE REGULAR AND EVEN. PATIENT HAS NO CURRENT CARE NEEDS, BUT HAS ASKED FOR MELATONIN WHEN THIS RN RETURNS. CALL LIGHT IS IN REACH.
--- NOTE | 2021-07-22 21:30 | NUR ---
PATIENT GIVEN MELATONIN AND GIVEN LOVENOX INJECTION. PATIENT DENIES PAIN AND DENIES BEING IN ANY RESPITORY DISTRESS. PATIENT REMAINS ON AIRVO OF 60L/FIO2 OF 95% WITH SUPPLEMENT OF OXYMASK AT 15L WELL. O2 SAT 91-92%, RESPIRATIONS ARE REGULAR AND EVEN, HR=60'S PER TELE/SPO2 MONITOR. PATIENT'S ICE WATER REFILLED AND PATIENT HAS NO OTHER NEEDS AT THIS TIME. CALL LIGHT IS IN REACH.
--- NOTE | 2021-07-22 22:50 | NUR ---
PATIENT'S O2 SAT DROPPED TO 85% AFTER USING URINAL AND HE IS HAVING A HARD TIME COMPENSATING. RT HARDIK GOING IN TO SEE PATIENT. PATIENT'S URINAL EMPTIED. PATIENT SAYS,"I'M DOING ALRIGHT". CALL LIGHT IS IN REACH.
--- NOTE | 2021-07-22 23:04 | NUR ---
RT DYE IN THE ROOM WITH PATIENT RIGHT NOW DISCUSSING GOING ON CPAP FOR AWHILE.
--- NOTE | 2021-07-22 23:14 | NUR ---
HARDIK HAS PATIENT ON CPAP NOW OF RATE 14 WITH 100% FIO2. SPO2=99% AT THIS TIME. CALL LIGHT IS IN PATIENT'S REACH.
--- NOTE | 2021-07-23 00:09 | NUR ---
PATIENT RESTING TO HIS LEFT SIDE, CPAP AT 14 WITH FIO2 100% REMAINS IN PLACE, PATIENT'S EYES ARE CLOSED, AND HIS CALL LIGHT IS IN REACH. NO NEEDS NOTED AT THIS TIME.
--- NOTE | 2021-07-23 01:32 | NUR ---
PATIENT RESTING QUIETLY ON HIS RIGHT SIDE, RESPIRATIONS EVEN ON CPAP RATE OF 14 WITH FOI2 OF 100% AND OXYMASK. O2 SATS ARE 97% AT THIS TIME AND CALL LIGHT IS IN REACH.
--- NOTE | 2021-07-23 02:34 | NUR ---
BROUGHT PT WATER, PT REMOVED CPAP MASK TO DRINK. PT NOT IN DISTRESS. FINISHED WITH DRINK AND REPLACED CPAP MASK. OFFERED PT URINAL, PT DECLINED. PT RESTING. CALL LIGHT WITHIN REACH, NO FURTHER ASSSITANCE NEEDED AT THIS TIME.
--- NOTE | 2021-07-23 04:16 | NUR ---
PATIENT CALLED AND WANTED OFF CPAP. PATIENT BACK ON AIRVO AT 60L/FOI2=95% WITH RESPIRATIONS OF 22 AND O2 SAT OF 93% NA HR=69. PATIENT LAYING ON HIS LEFT SIDE NOW, PILLOW TO SMALL OF THE BACK, ICE WATER REFILLED, AM ASSESSMENT COMPLETE, AND CALL LIGHT IN REACH. URINAL WAS EMPTIED BY THIS RN AND PATIENT HAS NO OTHER CARE NEEDS AT THIS TIME.
--- NOTE | 2021-07-23 05:20 | NUR ---
PATIENT SPO2 MONITOR BATTERY REPLACED AND ICE WATER REFILLED. PATIENT WANTED TO GET UP, SO 1PA TO BEDSIDE ARMCHAIR AND PATIENT IS MORE COMFORTABLE NOW. PATIENT REMAISN ON SAME 02 SETTINGS WHEN HE CAME OFF THE CPAP AND O2 SATS ARE 91%. PATIENT HAS HIS CALL LIGHT IN REACH.
--- NOTE | 2021-07-23 06:05 | NUR ---
PATIENT RESTING UP IN THE BEDSIDE ARMCHAIR ON THE SAME 02 HE HAS BEEN ON. PATIENT'S CALLED AND WAS UPDATED AND CALL TRANSFERED IN TO PATIENT.
--- NOTE | 2021-07-23 07:22 | NUR ---
COMMODE HAS BEEN PLACED IN THE ROOM PATIENT FEELS HE MAY BE ABLE TO HAVE A BOWEL MOVEMENT SOON. PATIENT'S O2 SATS=92% ON 60L/FIO2 95% ON AIRVO AND 15L+/OXYMASK. PATIENT REMAINS SITTING UP IN THE BEDSIDE ARMCHAIR. SHIFT REPORT GIVEN TO PENNY DA SILVA.
--- NOTE | 2021-07-23 07:38 | NUR ---
REPORT RECIEVED FROM PENNY BETH.
--- NOTE | 2021-07-23 08:36 | NUR ---
MORNING ASSESSMENNT DONE. PATIENT IS LYING ON HIS LEFT SIDE. LUNGS ARE DIM IN BASES, INSPIRATORY STRIDOR NOTED ON LEFT SIDE. RESPIRATIONS NOTED TO BE 38/MIN AT THIS TIME. PATIENT HAS POOR APPETITE. MORNING MEDICATIONS GIVEN. PATIENT DENIES WANTING SENNA, HE HAD A BM THIS MORNING.
--- NOTE | 2021-07-23 09:27 | NUR ---
RT IN TO SEE PATIENT, PATIENT ON C-PAP CURRENTLY.
--- NOTE | 2021-07-23 09:34 | NUR ---
PATIENT RESTING IN BED, CPAP IN PLACE. VITALS AND I&OS CHARTED. FRESH ICE WATER PROVIDED. CALL LIGHT IN REACH
--- NOTE | 2021-07-23 10:02 | NUR ---
PATIENT IS ON CPAP CURRENTLY SATS ARE 93-94%. 0900 MEDICATIONS GIVEN.
--- NOTE | 2021-07-23 11:53 | NUR ---
PATIENT CONTINUES TO WEAR CPAP, RESTING IN BED.
--- NOTE | 2021-07-23 12:27 | NUR ---
PATIENT IS RESTING IN BED, DOES NOT WANT LUNCH, CONTINUES TO WEAR CPAP.
--- NOTE | 2021-07-23 13:35 | NUR ---
PATIENT LYING ON BACK IN BED. CPAP IN PLACE. VITALS AND I&OS CHARTED. PATIENT REFUSED BED BATH AND LUNCH. CALL LIGHT AND PERSONAL ITEMS IN EASY REACH
--- NOTE | 2021-07-23 13:55 | NUR ---
PATIENT AWAKE AND UPDATED THAT NURSE HAD GIVEN HIS UPDATES. PATIENT DENIES NEEDS AT THIS TIME.
--- NOTE | 2021-07-23 14:32 | NUR ---
PATIENT IS RESTING IN BED
--- NOTE | 2021-07-23 15:39 | NUR ---
no change in plan for dc.
--- NOTE | 2021-07-23 15:50 | NUR ---
PATIENT IS SLEEPING ON BACK, CPAP IS ON WITH 14L 02 @ 90% PER LAST RT UPDATE.
--- NOTE | 2021-07-23 16:13 | NUR ---
ASSISTED PATIENT TO CHAIR 1 ASSIST STAND AND PIVOT TO CHAIR. HYPEROXYGENATED PRE AND POST, KWAME WELL WOB OK. RN NOTIFIED OF CHANGE IN POSITION. PT LEFT WITH CALL LIGHT IN HAND.
--- NOTE | 2021-07-23 16:31 | NUR ---
PATIENT UP TO CHAIR WITH ASSISTANCE OF ROB. ELFEGO
--- NOTE | 2021-07-23 17:46 | NUR ---
ATTEMPTED TO SWITCH PATIENT FROM CPAP TO NC TO THAT HE MIGHT TRY TO EAT DINNER, PATIENT WAS UNABLE TO TOLERATE THIS, CALL TO RT FOR HELP, PATIENT PLACED BACK ON CPAP IN THE MEANTIME.
--- NOTE | 2021-07-23 18:29 | NUR ---
THIS NURSE DISCUSSED WITH PATIENT THAT HE MUST ABSOLUTELY START PRONING WHEN HE RETURNS TO BED, THAT I WAS WORRIED ABOUT HIM. PATIENT AGREED TO LAY ON SIDE WHEN IN BED.
--- NOTE | 2021-07-23 19:25 | NUR ---
REPORT RECEIVED FROM PENNY DA SILVA. pt RESTING IN BED ON RIGHT SIDE. SPO2 95% ON CPOX, TELE 9.
--- NOTE | 2021-07-23 21:15 | NUR ---
pt RESTING IN BED ON RIGHT SIDE. SPO2 94% WITH CPAP AT 90% FIO2. pt DENIES PAIN, STATES HIPS ARE A LITTLE UNCOMFORTABLE. DENIES NEED FOR PRN MEDICATION. SOME COARSNESS RIGHT LOWER LOBE. pt DENIES SOB. PRN MELATONIN ADMINISTERED. ICE WATER PROVIDED. CALL LIGHT IN REACH.
--- NOTE | 2021-07-23 23:30 | NUR ---
pt RESTING IN BED ON RIGHT SIDE. SPO2 92%. CPAP ON.
--- NOTE | 2021-07-24 01:06 | NUR ---
CHECKED ON pt. RESTING ON RIGHT SIDE, EYES CLOSED. CPAP ON. SPO2 90% ON TELE 9 CPOX.
--- NOTE | 2021-07-24 03:00 | NUR ---
PENNY MATHEWS IN pt ROOM. pt WITH CPAP ON. RN EMTPIED URINAL.
--- NOTE | 2021-07-24 06:41 | NUR ---
pt RESTING IN BED AWAKE, STATES DID NOT REST WELL. ASSESSMENT COMPLETE. pt C/O 7/10 PAIN IN HIPS, RIBS. PRN TYLENOL ADMINISTERED. CPAP IN PLACE 90% FIO2. pt ASSISTED TO REPOSITION TO LEFT SIDE WITH PILLOW BETWEEN LEGS AND BEHIND BACK. SPO2 90% AT THIS TIME. CALL LIGHT IN REACH.
--- NOTE | 2021-07-24 07:29 | NUR ---
REPORT RECIEVED FROM PENNY VERNON. PT LAYING ON LEFT SIDE WITH CPAP ON. RT JEWEL GOING IN ROOM TO TITRATE UP TO 100%. SATS 85.
--- NOTE | 2021-07-24 09:45 | NUR ---
IN ROOM FOR VS AND CHECK ON PT. PT STATES HE IS FEELING OK, SATS 90 ON CPAP. VS STABLE. NO UO YET, PT STATES HE WILL TRY A LITTLE LATER.
--- NOTE | 2021-07-24 10:37 | NUR ---
PT ASSISTED INTO PRONE POSITION. PILLOWS PLACED UNDER HIPS AND SHOULDERS TO FACILITATE THE POSITION AND BED PLACED IN REVERSE TREND [place]. KWAME WELL WOB OK. FIO2 REDUCED TO 90% KWAME WELL.
--- NOTE | 2021-07-24 11:16 | NUR ---
PATIENT HAS BEEN IN HOUSE FOR 6 DAYS. HE HAS BEEN UNABLE TO EAT FOR THE PAST FEW DAYS DUE TO UNABLE TO BREATHE WITHOUT CPAP. NEED TO CONSIDER AN ALTERNATE ROUTE FOR NUTRITION IF PATIENT UNABLE TO IMPROVE PO INTAKE IN THE NEXT 48 HOURS.
--- NOTE | 2021-07-24 11:53 | NUR ---
ASSISTED NURSING IN TRANSFER TO CCU PT ON NRB FOR TX AND PLCED ON V60 UPON ARRIVAL TO CCU. KWAME TX WELL. PT REMAINS PRONED.
--- NOTE | 2021-07-24 11:54 | NUR ---
IN ROOM TO DO VBG, DR VENCES IN ROOM. PT PRONING AFTER RT JEWEL ASSISTED HIM. TOLERATING OK. MOVED PT TO CCU, REPORT GIVEN TO PENNY ELLIS. WILL CALL TO UPDATE.
--- NOTE | 2021-07-24 12:00 | NUR ---
TRANSFERRED TO ROOM 127 FROM 118 VIA BED. UPON ADMITE TO CCU PATIENT IS IN PRONE POSITION. CPAP PLACED AT 80 % FIO2 AND 16 PRESSURE. DURNING TRANSFER PATIENT ON NRBM.
--- NOTE | 2021-07-24 12:05 | NUR ---
MORPHINE 2 MG IV GIVEN FOR RESP COMFORT. DECADRON 6 MG IV GIVEN PER ORDERS.
--- NOTE | 2021-07-24 12:32 | NUR ---
RESTING ON RIGHT SIDE. CPAP ON PRESSURE 16, FIO2-80. RR-28. IVF INFUSING AT 50 ML/HR . USED URINAL TO VOID 325 ML OF CONCENTRATED URINE. ATTEMPTED IV, UNABLE. S. KAVYA RN WILL PLACE MIDLINE.
--- NOTE | 2021-07-24 12:55 | NUR ---
Notified, pt returned to CCU for decompensating respiratory status.
--- NOTE | 2021-07-24 13:10 | NUR ---
Hortensia HOFF RN HERE TO PLACE MIDLINE.
--- NOTE | 2021-07-24 13:30 | NUR ---
FIO2 INCREASED TO 90% SAT ON 80% FIO2 86. IS CURRENTLY LAYING ON LEFT SIDE WHILE MIDLINE BEING PLACED.
--- NOTE | 2021-07-24 13:34 | NUR ---
MIDLINE INSERTION NOTE: EVALUATED PATIENT FOR POTENTIAL MIDLINE PLACEMENT. PATIENT'S RIGHT ARM WAS EVALUATED FIRST USING SITE RITE 8 U/S. PATIENT'S CEPHALIC AND BASILIC AND BRACHIAL VEINS WERE IDENTIFIED AND THE BASILIC APPEARED TO BE THE BEST CANDIDATE, GIVEN THE SIZE. PATIENT'S SKIN WAS PREPPED PER CDC GUIDELINES FOR STERILE PROCEDURE. MIDLINE WAS INSERTED AND ADVANCED WITHOUT DIFFICULTY. DARK, BRISK, NON PULSATILE BLOOD WAS RETURNED. SECUREMENT DEVICE AND BIO PATCH PLACED OVER SITE, WITH STERILE DRESSING OVER THE TOP. PATIENT TOLERATED PROCEDURE WELL. EDUCATION MATERIAL LEFT IN PATIENT'S CHART AND REPORT GIVEN TO NURSE CARING FOR THIS PATIENT.
--- NOTE | 2021-07-24 15:00 | NUR ---
DELATORRE CATH PLACED W/O DIFFICULTY WITH RETURN OF CONCENTRATED URINE. PATIENT TOLERATED WELL.
--- NOTE | 2021-07-24 16:00 | NUR ---
ASSESSMENT DONE. TEMP 101.9 AX, DR. VENCES UPDATED VIA PHONE. ORDERS RECIEVED. WILL RECIEVED VANCO, LEVAQUIN, CEFAPINE. LABS DRAWN. PATIENT DENIES PAIN.
--- NOTE | 2021-07-24 17:10 | NUR ---
dr. ace here to see patient. NO FUTHER ORDERS AT THIS TIME.
--- NOTE | 2021-07-24 18:15 | NUR ---
TO PRONE POSITION. DELATORRE CATH PATENT IVF PATIENT.
--- NOTE | 2021-07-24 19:18 | NUR ---
patient continues to prone. REPORT TO NEXT SHIFT.
--- NOTE | 2021-07-24 19:39 | NUR ---
PT SWABBED FOR COVID BY RT AT THIS TIME. REMAINS ON CPAP IN PRONE POSITIONING, CALL LIGHT WITHIN REACH. DENIES FURTHER NEEDS AT THIS TIME.
--- NOTE | 2021-07-24 19:45 | NUR ---
PT UPDATE ON PT CONDITION AND PLAN OF CARE.
--- NOTE | 2021-07-24 20:30 | NUR ---
ASSESSMENT COMPLETED. PT RESTING ON BIPAP AND DID NOT STAY AWAKE ON EXAM. PTS LUNGS DIM THROUGHOUT WITH SCATTERED FINE CRACKLES. CPAP IN PLACE WITH FI02 = 100%, SPO2 =94%. RESPIRATIONS EVEN AT 22 BREATHS PER MINUTE. CALL LIGHT AND PERSONAL BELONGINGS WITHIN REACH. WILL CONTINUE TO MONITOR.
--- NOTE | 2021-07-25 00:11 | NUR ---
Assessment completed. iv vancomycin and cefipime infusing. Pt first turned from right to left side. Pt then switched to highflow Airvo on 60L/ 95% FIO2. Pt's face washed, chapstick and oral care provided. Saturations momentarily down into the low 70s with exertion on the highflow. pt now back on CPAP, spo2 now at 93%. Discussed plan of care and results of COVID screen. Call light within reach. denies further needs at this time.
--- NOTE | 2021-07-25 01:26 | NUR ---
assisted pt with repositioning. iv abx still infusing, spo2 = 94% on cpap. call light within reach. Denies further needs
--- NOTE | 2021-07-25 04:00 | NUR ---
ASSESSMENT COMPLETED. PT REMAINS ON CPAP. RESPOSITIONED IN BED. CALL LIGHT WITHIN REACH. WILL CONTINUE TO MONITOR.
--- NOTE | 2021-07-25 06:00 | NUR ---
IN ROOM FOR BLOOD DRAW. PT PLACED ON HIGHFLOW WITH NRB MASK WELL TO TAKE A BREAK FROM CPAP. SATURATIONS IN LOW 80S. BACK ON CPAP, REPOSITIONED ON TO RIGHT SIDE. SATURATIONS BACK UP TO THE MID 90S. CALL LIGHT WITHIN REACH. DENIES FURTHER NEEDS AT THIS TIME.
--- NOTE | 2021-07-25 07:53 | NUR ---
REPORT RECEIVED FROM NIGHTSHIFT RN, WILL CONTINUE PLAN OF CARE.
--- NOTE | 2021-07-25 09:10 | NUR ---
THIS RN IN TO ASSESS PT AND ADMINISTER SCHEDULED MEDICATIONS. PT LAYING ON HIS RIGHT SIDE AT THIS TIME ALERT AND ORIENTED ON THE CPAP AT 85% FIO2. PT TURNED UP AT THIS TIME TO 90% FIO2 SPO2 WAS MAINTAINING AT THE 87-88% RANGE. WHEN CHECKING VITALS PT'S AXILLARY TEMPERATURE WAS 101.3. PRN TYLENOL WAS ADMINISTERED ALONG WITH SCHEDULED MEDICATIONS (SEE MAR). IV AND MIDLINE ASSESSED AND ARE PATENT AND FLUSHING EASILY, IV ABX INFUSING AT ORDERED RATES. PT ASSESSED AND TURNED TO HIS LEFT SIDE TO LAY DOWN AFTERWARDS. PT REPORTS NO SHORTNESS OF BREATH AT THIS TIME AND DENIES THE NEED FOR PRN COUGH MEDICATION WHEN ASKED. MAINTENANCE IV FLUIDS CHANGED TO NEW ORDERED RATE AT THIS TIME (SEE MAR) PT NOW LAYING IN BED RESTING ON HIS LEFT SIDE AND STATES HE WILL TRY TO TAKE A NAP. CALL LIGHT IN REACH, BED IN LOWEST POSITION. PT SPO2 AT 90-92% AT THIS TIME ON THE CPAP.
--- NOTE | 2021-07-25 09:50 | NUR ---
THIS RN IN TO CHECK ON PT HIS SPO2 WAS 86%. PT WAS LAYING ON HIS BACK ON HIS PHONE. PT WAS ASSISTED IN LAYING BACK ON HIS LEFT SIDE AFTER FINISHING AND MORE PILLOWS WERE USED TO HELP SUPPORT THE PT AND IMPROVE COMFORT. PT NOW ON HIS LEFT SIDE, IV ABX INFUSING AT ORDERED RATES. PT STATES HIS BREATHING FEELS BETTER AFTER GETTING ON TO HIS LEFT SIDE, CPAP STILL ON 90%, SPO2 NOW AT 92-94%. PT REPORTS NO FURTHER NEEDS AT THIS TIME, WILL CONTINUE PLAN OF CARE. CALL LIGHT IN REACH, BED IN LOWEST POSITION.
--- NOTE | 2021-07-25 10:15 | NUR ---
DR. VENCES UPDATED ON PT AT THIS TIME REGARDING PT'S TEMPERATURE AND SLEEP, WILL CONTINUE PLAN OF CARE.
--- NOTE | 2021-07-25 11:45 | NUR ---
THIS RN IN TO ASSESS PT. PT LAYING IN BED ON RIGHT SIDE ON THE CPAP AT 90% FIO2, SPO2 94%. PT ALERT AND ORIENTED AT THIS TIME AND DENIES HAVING ANY SHORTNESS OF BREATH OR PAIN. ONE IV ABX COMPLETED, PT IV SALINE LOCKED, OTHER IV ABX STILL INFUSING INTO MIDLINE. PT WAS TURNED TO HIS RIGHT SIDE AFTERWARDS PT WANTED TO CHANGE POSITIONS. PT NOW LAYING ON RIGHT SIDE RESTING. PT ASSESSED AT THIS TIME AND VBG DRAWN AND SENT TO LAB. PT VITALS TAKEN, TEMPERATURE OF 99.9 NOTED, PT DENIES HAVING ANY CHILLS WHEN ASKED AND STATES HE FEELS "ALRIGHT". PT REPORTS NO FURTHER NEEDS AT THIS TIME AND IS RESTING ON HIS RIGHT SIDE, CPAP AT 90% FIO2, SPO2 91%, IV ABX AND IVF INFUSING AT ORDERED RATES, IN ROOM WITH PT, CALL LIGHT IN REACH, WILL CONTINUE PLAN OF CARE.
--- NOTE | 2021-07-25 12:41 | NUR ---
PT CHECKED ON AT THIS TIME, PT ON CPAP AT THIS TIME RESTING ON HIS RIGHT SIDE, SPO2 92%, IV ABX INFUSING AT ORDERED RATE. PT STATES HE IS GOING TO NAP/REST AT THIS TIME, IN ROOM WITH PT AT BEDSIDE. PT REPORTS NO FURTHER NEEDS WHEN ASKED, WILL CONTINUE PLAN OF CARE. CALL LIGHT IN REACH, BED IN LOWEST POSITION.
--- NOTE | 2021-07-25 13:50 | NUR ---
THIS RN IN TO CHECK ON PT. PT LAYING IN BED AT THIS TIME ALERT AND ORIENTED ON HIS RIGHT SIDE, CPAP ON, SPO2 94-95%, PT VITALS TAKEN AT THIS TIME, AXILLARY TEMP OF 100.0, PT DENIES ANY CHILLS, ACHES, OR PAIN AT THIS TIME WHEN ASKED. DR. VENCES IN ROOM AFTERWARDS TO ASSESS PT AND UPDATE ON PLAN OF CARE. CPAP FIO2 TURNED TO 85% PER MD'S REQUEST, PT MAINTAINING SPO2 90-92%. PT REPORTS NO FURTHER NEEDS AND STATES HE WOULD LIKE TO PRONE AT THIS TIME. PT FIO2 INCREASED TO 100% ON CPAP WHILE TURNING PT TO PRONE POSITION. PT ABLE TO DO MAJORITY OF TURNING ON HIS OWN WITH ASSISTANCE ON WIRE MANAGEMENT AND PILLOW PLACEMENT. LOWEST NOTED SPO2 86% WHILE ASSUMING PRONE POSITION. PT NOW RESTING AND PRONED, PT DENIES SHORTNESS OF BREATH WHEN ASKED, FIO2 TITRATED DOWN TO 85%, PT MAINTAINING SPO2 AT 90-92%. PT REPORTS NO FURTHER NEEDS WHEN ASKED, IV ABX COMPLETE, MAINTENANCE IVF INFUSSING, CALL LIGHT IN REACH, IN ROOM, BED IN LOWEST POSITION, WILL CONTINUE PLAN OF CARE.
--- NOTE | 2021-07-25 14:52 | NUR ---
RESPONDED TO PT CALL LIGHT, PT STATED HE WANTED TO GO BACK TO SIDE LAYING. PT LAYING IN BED AWAKE AND ALERT ON CPAP AT 85% FIO2, SPO2 AT 92%. PT REPORTS NO SHORTNESS OF BREATH AT THIS TIME WHEN ASKED. PT ASSISTED IN LAYING BACK ON HIS RIGHT SIDE AND STATES HE WOULD LIKE TO REMAIN ON THAT SIDE. PT REPORTS PAIN AND STATES THEY ARE GENERAL BODY ACHES AND PAIN 7/10. PRN TYLENOL ADMINISTERED AT THIS TIME. PT REPORTS NO FURTHER NEEDS AT THIS TIME AND IS NOW RESTING, IVF INFUSING ORDERED, CPAP ON AT 85%, SPO2 92%, PT IN ROOM, WILL CONTINUE PLAN OF CARE.
--- NOTE | 2021-07-25 16:00 | NUR ---
THIS RN IN TO ASSESS PT AND ADMINISTER SCHEDULED MEDICATIONS. PT LAYING IN BED AWAKE AND ALERT ON THE CPAP, FIO2 STILL AT 85%, SPO2 92%. PT DENIES HAVING ANY PAIN AT THIS TIME STATING HIS ACHES HAVE IMPROVED. PT, SCHEDULED LABS DRAWN FROM [facility] AND SENT TO LAB, SCHEDULED IV ABX THEN STARTED ORDERED. PT ASSESSED AT THIS TIME AND VITALS TAKEN. PT REPORTS NO FURTHER NEEDS AT THIS TIME WHEN ASKED AND IS NOW RESTING ON HIS RIGHT SIDE, CPAP IN PLACE, FIO2 85%, CALL LIGHT IN REACH, IN ROOM WITH PT, WILL CONTINUE PLAN OF CARE.
--- NOTE | 2021-07-25 16:56 | NUR ---
Vancomycin trough level prior to 4th dose = 9.8. Increase dose from 1500mg IV q 8 hrs to 2000mg IV q 8 hrs per pharmacokinetic calculation
--- NOTE | 2021-07-25 17:16 | NUR ---
THIS RN IN TO CHECK ON PT AND ADMINISTER SCHEDULED MEDICATIONS PT REPORTS NO NEEDS AT THIS TIME AND DENIES HAVING ANY PAIN OR SHORTNESS OF BREATH. PT LAYING ON HIS RIGHT SIDE AT THIS TIME, SPO2 92% ON 85% FIO2. ORDERED IV ABX STARTED AT THIS TIME. PT REPORTS NO NEEDS AT THIS TIME WHEN ASKED, DELATORRE DRAINING, IV ABX INFUSING ORDERED, CALL LIGHT IN REACH, BED IN LOWEST POSITION, WILL CONTINUE PLAN OF CARE.
--- NOTE | 2021-07-25 18:15 | NUR ---
THIS RN IN TO CHECK ON PT, PT LAYING IN BED AT THIS TIME AWAKE AND ALERT, IV LEVAQUIN FINISHED INFUSING AT THIS TIME, PT STILL HAS VANCOMYCIN AND CEFEPIME INFUSING ORDERED. PT ASSISTED IN TURNING ONTO HIS LEFT SIDE AT THIS TIME PER HIS REQUEST. PT INITIALLY ON 80% FIO2 AND PLACED ON 100% FIO2 TO RECOVER. PT WAS TITRATED BACK DOWN TO 80% FIO2 ON THE CPAP AFTER RESTING. PT REPORTS NO FURTHER NEEDS WHEN ASKED AT THIS TIME AND IS NOW RESTING ON HIS LEFT SIDE, CPAP AT 16, FIO2 80%, SPO2 91%, WILL CONTINUE PLAN OF CARE. CALL LIGHT IN REACH, BED IN LOWEST POSITION, IN ROOM WITH PT.
--- NOTE | 2021-07-25 20:35 | NUR ---
SHIFT REPORT RECEIVED FROM PENNY VALENCIA. PT IS ALERT/ORIENTED, DENIES PAIN. LUGNS CLEAR/DIM, CPAP OF 16 @ 80% IN PLACE, PT DENIES SOB. HR REGULAR, DENIES CHEST PAIN. BOWEL TONES ACTIVE, DENIES NAUSEA. IV AND MIDLINE DRESSINGS INTACT AND PATENT. MIDLINE CONTINUES TO HAVE BLOOD RETURN. SKIN GROSSLY INTACT WITHOUT EDEMA, CMS INTACT. DELATORRE PATENT. PT PROVIDED WITH TRAZODONE FOR SLEEP PER REQUEST. PT DENIES NEEDS, CALL LIGHT WITHIN REACH.
--- NOTE | 2021-07-25 22:16 | NUR ---
PT RESTING IN BED ON LEFT SIDE. NO APPARENT DISTRESS, RESPIRATIONS EVEN AND UNLABORED. CPAP REMAINS IN PLACE, SETTINGS UNCHANGED.
--- NOTE | 2021-07-25 23:01 | NUR ---
IN TO CHECK ON PT. R.T. HAD TITRATED CPAP TO 75% AND PT WAS FEELING LIKE HE COULDN'T BREATHE, FIO2 TITRATED BACK TO 80%. SPO2 WENT FROM 89% TO 93% WITH THAT CHANGE. PT ASSISTED WITH PILLOWS IN BED TO GET MORE COMFORTABLE, REMAINS ON LEFT SIDE. NEW IVF BAG STARTED. DELATORRE EMPTIED.
--- NOTE | 2021-07-26 00:10 | NUR ---
ASSESSMENT COMPLETED. PT CONTINUES TO FEEL LIKE HE ISN'T GETTING ENOUGH AIR, PRN MORPHINE GIVEN FOR AIR HUNGER. LUNGS CONTINUE TO SOUND CLEAR/DIM, CPAP 16 @ 80% IN PLACE. REMAINDER OF ASSESSMENT UNCHANGED. DELATORRE EMPTIED. ANTIBIOTIC INFUSIONS STARTED. IV SITES REMAIN INTACT. PT DENIES FURTHER NEEDS.
--- NOTE | 2021-07-26 01:14 | NUR ---
FIO2 TITRATED TO 100% FOR SPO2 86-88%. NOW SPO2 OS 92%. PT APPEARS TO BE SLEEPING, NO APPARENT DISTRESS.
--- NOTE | 2021-07-26 02:35 | NUR ---
PT REPORTS FEELING SOB, 2MG IV MORPHINE GIVEN. PT ASSISTED TO REPOSITION WITH PILLOWS. DENIES FURTHER NEEDS. CALL LIGHT WITHIN REACH.
--- NOTE | 2021-07-26 05:10 | NUR ---
ASSESSMENT COMPLETED. LUNGS REMAIN CLEAR/DIM, CPAP 16 @ 100% IN PLACE. PT DENIES SOB OR PAIN AT THIS TIME. DELATORRE EMPTIED. PT PROVIDED WITH ORAL SWABS TO MOISTEN MOUTH. BLOOD DRAWN FROM MIDLINE FOR MORNING LABS, CONTINUES TO HAVE BRISK BLOOD RETURN AND FLUSHES WITHOUT RESISTANCE. PT DENIES FURTHER REQUESTS AT THIS TIME, CALL LIGHT WITHIN REACH.
--- NOTE | 2021-07-26 06:36 | NUR ---
SPOKE TO Jf REGARDING DESATURATIONS TO 86-87% ON CPAP 16 @100%. Jf STATED THAT HE THOUGHT THAT BIPAP MAY BE MORE BENEFICIAL, BUT STATED HE DIDN'T WANT TO CHANGE SETTINGS WITHOUT SPEAKING TO THE MD FIRST AND STATED I COULD INCREASE THE CPAP PRESSURE TO 18. PRESSURE CHANGED AND DR. VENCES NOTIFIED OF CHANGES. MD AWARE THAT SPO2 IS 86-87% AND STATED TO GIVE HIM SOME TIME TO ADJUST TO THE HIGHER PRESSURE.
--- NOTE | 2021-07-26 07:46 | NUR ---
REPORT RECEIVED FROM NIGHTSHIFT RN, WILL CONTINUE PLAN OF CARE.
--- NOTE | 2021-07-26 08:28 | NUR ---
PATIENT GIVEN SMALL SIP OF WATER FOR CMFORT- O2 SAT DROPPED TO 84 AND RECOVERED WELL CPAP IN PLACE. VITALS AND I&OS CHARTED. DELATORRE EMPTIED. CALL LIGHT AND PERSONAL ITEMS IN EASY REACH. PRATIK CALLED, RN NOTIFIED.
--- NOTE | 2021-07-26 09:10 | NUR ---
DR. VENCES IN TO ASSESS PT AND UPDATE ON PLAN OF CARE. UPON EXITING ROOM THIS RN WAS NOTIFIED THAT THE PLAN OF CARE WAS TO INTUBATE THE PT. . CIVIL RIGHTS INVESTIGATOR NOTIFIED AT THIS TIME, CIVIL RIGHTS INVESTIGATOR TO NOTIFY RESEARCH HYDROLOGIST. RT ALSO NOTIFIED AT THIS TIME. WILL CONTINUE PLAN OF CARE.
--- NOTE | 2021-07-26 10:55 | NUR ---
909 - 929 THIS RN IN AT THIS TIME TO ASSESS PT, PT AWAKE AND ALERT ON THE CPAP AT THIS TIME AT 18 AND FIO2 100%. SPO2 87-88% PT ASSISTED IN TURNING TO HIS RIGHT SIDE AND WAS THEN ASSESSED AT THIS TIME. SPO2 SLOWLY INCREASED TO 90% AT THIS TIME. ROOM PREPARED AT THIS TIME FOR INTUBATION. TEAM ARRIVING AT THIS TIME. 30 - 5 LUKE DE LA CRUZ, PENNY HANNA, GRASS FARMER MELVI, RT JEANIE, PENNY LIU, AND THIS RN IN ROOM. TUBE WORKER ADMINISTERED PROPOFOL AND SUCCYINLCHOLINE AT 0941. PT INTUBATED AFTER 2 ATTEMPTS, BILATERAL BREATH SOUNDS HEARD AT 0947. PT INITIALLY BAGGED AT HAD AN ETCO2 OF 27, PT PLACED ON VENTILATOR AT 0955, ROCURONIUM AND EPHEDRINE ADMINISTERED BY TUBE WORKER, OG TUBE PLACED AND PROPOFOL STARTED AT 20MCG/KG/MIN. RESTRAINTS PLACED ON AT THIS TIME. AND PROPOFOL THEN INCREASED TO 40MCG/KG/HR PT WAS TENSE AND RESTLESS IN BED AND OVERBREATHING VENTILATOR. [id number] VITALS TAKEN AT THIS TIEM (SEE CHART) PEEP INCREASED TO 24 AT THIS TIME AT 1013 2MG MIDAZOLAM GIVEN PER TUBE WORKER HR AND BLOOD PRESSURE WERE ELEVATED (SEE CHART). AT 1020 PROPOFOL WAS INCREASED TO 65 MCG/KG/MIN. 1522-1069 VENT SETTINGS CURRENTLY AT 100% FIO2, VT 410, RR 18, PEEP 21. ABG DRAWN BY RT AT 1022, AT THIS TIME THE TEAM HAD LEFT THE ROOM ASIDE FROM THIS RN AND RT AMELIA. 2MG PRN MORPHINE ADMINISTERED IV AT 1033 FOR PAIN PT WAS TENSE, RESTLESS IN BED. AT 1040 RT JEANIE, RT CISNEROS, THIS RN, LINDA MORILLO AND PENNY LIU IN ROOM TO PRONE PT PER MD ORDERS TO INCREASE SPO2 LEVELS. AFTER PRONING AND BEING PLACED IN REVERSE TRENDELENDBERG PT'S DESATURATED TO 60% BUT SLOWLY INCREASING. AT 1045 50MG OF KETAMINE AND 50 OF ROCURONIUM WAS ADMINISTERED IV FOR PT BEING TENSE, RESTLESS, AND OVERBREATHING VENTILATOR PER MD. AT 1047 AN ADDITION 100 MG OF KETAMINE ADMINISTERED. VENT SENTTINGS AT 1050 WERE CHANGED TO HAVE A RESPIRATION RATE OF 24 AND A PEEP OF 22. RESTRAINTS THEN PLACED BACK ON AFTER PRONING AT 1055. PT NOW IN BED AT THIS TIME PRONED ON VENTILATOR. SPO2 81% AND INCREAING SLOWLY INCREASING. PT IN NO APPARENT DISTRESS AT THIS TIME, PROPOFOL INFUSING AT 65MCG/KG/MIN RT IN ROOM AT THIS TIME. , WILL CONTINUE PLAN OF CARE.
--- NOTE | 2021-07-26 11:13 | NUR ---
1015- pt was intubated placed on vent 7.5 24 @ teeth, secure with bite block in place. 1022 ABG obtained , Pt Sp02 was low, peep of 22, rr increased to target endtidal of 25-45, 1040 pt proned eet secure , pt position reverse tendelenberg. vt settign 410 rr 24 peep 22 , inspiratory time 0.77. Will continue to monitor .
--- NOTE | 2021-07-26 11:24 | NUR ---
PT RESTING AT THIS TIME ON VENTILATOR IN NO APPARENT DISTRESS. PROPOFOL AT 65 MCG/KG/MIN. VENT SETTINGS UNCHANGED, SPO2 AT 89%. PT STILL PRONED. SCHEDULED MEDICATIONS ADMINISTERED AT THIS TIME (SEE JAN), IV ABX NOW INFUSING INTO PT'S IV. IN ROOM WITH PT AT THIS TIME. PT IN NO APPARENT DISTRESS, WILL CONTINUE PLAN OF CARE. OG TUBE DRAINING AND ON LOW INTERMITTENT SUCTION, DELATORRE DRAINING, IV ABX INFUSING, PROPOFOL INFUSING, VENT ON, SPO2 89%.
--- NOTE | 2021-07-26 14:05 | NUR ---
SHERON ARRIVED TO THE CRITICAL CARE UNIT AT 1155. RN IN THE ROOM WITH PT AT THIS TIME. TEMPERATURE TAKEN AND WAS 100.7 AXILLARY. PT RESTING ON VENT PRONED AT THIS TIME IN NO APPARENT DISTRESS, PROPOFOL INFUSING AT 65 MCG/KG/MIN, VANCOMYCIN INFUSING, CEFEPIME TO BE GIVEN AFTERWARDS. BOTH IV AND MIDLINE PATENT. REPORT GIVEN TO SHERON RN UPON ARRIVAL. PT INITIALLY MOVED ONTO THE STRETCHER IN THE PRONE POSITION WITH THE HELP OF THE [facility] RN AND MEDIC, THE RT, DIRECTOR PHARMACEUTICAL, MERCERIZER, SECURITY, AND THIS RN. PT REPOSOTIONED ON THE BED AND HEAD TURNED FROM LEFT TO RIGHT TO ALLOW FOR ACCESS TO AIRWAY IN THE HELICOPTER. AFTER MOVING PT AND CONNECTING PT TO [facility] VENTILATOR PT BEGAN TO DESATURATE TO THE 40-50% SPO2 RANGE. PT BAGGED AT THIS TIME TO IMPROVE SATURATION BUT REMAINED IN THE 40-50% RANGE PT MOVED BACK TO THE CCU BED AND CONNECTED TO THE CCU VENTILATOR TO BRING BACK UP SPO2. AFTER SOME TIME PT WAS MOVED BACK TO THE STRETCHER, SPO2 IN THE 70-80% RANGE, PT WAS TAKEN DOWN TO THE HELICOPTER BUT WAS NOT LOADED PT SPO2 WAS 40-50% ON THE HELICOPTER O2 WHILE ON THE VENT. PT RUSHED BACK TO THE CCU ALLOWED TO REST AND MOVED BACK TO THE BED AND RECONNECTED TO THE CCU VENT. AT THIS TIME HR BEGAN TO ELEVATE, AND PT SEEMED MORE TENSE, [facility] RN ADMINISTERED ROCURONIUM AT THIS TIME. FOLLOWED BY EPI TO INCREASE LOWER BLOOD PRESSURES. PT THEN STARTED ON A LEVOPHED DRIPPED AND TITRATED UP TO MCG/MIN. AFTER RESTING PT WAS THEN TRANSFERRED BACK TO THE STRETCHER THAT HAD PILLOWS AND PADS THAT ALLOWED PT TO LAY ON IT IN REVERESE TRENDELENBURG, SPO2 REMAINED AT 80-85% WHILE TRANSFERRING PT TO THE STRETCHER. PT THEN TAKEN BACK DOWN TO THE HELICOPTER AND LOADED UP WITH THE SAME TEAM PRESENT. PT REMAINED STABLE, SPO2 85-89% ON [facility] VENT/OXYGEN. [facility] RN TO CONTINUE PLAN OF CARE AND TRANSFER PT AT THIS TIME.
--- NOTE | 2021-07-26 14:35 | NUR ---
REPORT GIVEN TO PENNY RICARDO AT [facility] AT THIS TIME TO CONTINUE PLAN OF CARE.
== END 2021-07-26 14:00 | disposition short-term general hospital (02) | DRG 208 ==
LOC: ED 18:39 → MS 23:00 → CCU 07-20 09:40 → MS 07-22 14:20 → CCU 07-24 11:37
PROVIDERS: ADMIT Internal Medicine; ATTEND Internal Medicine
PROC: 8E0ZXY6 Isolation (ICD-10-PCS; 2021-07-17)
PROC: 5A09557 Assistance with Respiratory Ventilation, Greater than 96 Consecutive Hours, Continuous Positive Airway Pressure (ICD-10-PCS; principal; 2021-07-18)
PROC: XW033E5 Introduction of Remdesivir Anti-infective into Peripheral Vein, Percutaneous Approach, New Technology Group 5 (ICD-10-PCS; 2021-07-21)
PROC: 3E0333Z Introduction of Anti-inflammatory into Peripheral Vein, Percutaneous Approach (ICD-10-PCS; 2021-07-24)
PROC: 5A1935Z Respiratory Ventilation, Less than 24 Consecutive Hours (ICD-10-PCS; 2021-07-26)
PROC: 0BH17EZ Insertion of Endotracheal Airway into Trachea, Via Natural or Artificial Opening (ICD-10-PCS; 2021-07-26)
DX: U07.1 COVID-19 (principal); J96.01 Acute respiratory failure with hypoxia; J12.82 Pneumonia due to coronavirus disease 2019; B17.8 Other specified acute viral hepatitis; Z68.41 Body mass index [BMI] 40.0-44.9, adult; Z98.890 Other specified postprocedural states; Z79.899 Other long term (current) drug therapy; R74.01 Elevation of levels of liver transaminase levels; E66.01 Morbid (severe) obesity due to excess calories
CPT/HCPCS: 31500; 36569; 36600; 71045; 71260; 80053; 80202; 82803; 83735; 83880; 84100; 84484; 85025; 87040; 93005; 93010; 94002; 94660; 94760; 94799; 99285-25; A9270; C9803; J0692; J1100; J1650; J1956; J2250; J2270; J2704; J3370; J7050; J7060; J7121; Q9967; U0003